=== PATIENT | male | born 1985 | race Caucasian/White ===

== ENCOUNTER 2018-01-03 12:56 | Emergency (ER) | payer OTHER ==
[~2018-01-03] VITALS: Ht 182.8 cm; Wt 81.6 kg
[2018-01-03] MEDS ORDERED: PREDNISONE10 MG PO (13:37)
== END 2018-01-03 14:03 | disposition home or self-care (01) ==
LOC: ED 12:56
DX: L30.8 Other specified dermatitis (principal); R03.0 Elevated blood-pressure reading, without diagnosis of hypertension; Z88.1 Allergy status to other antibiotic agents